=== PATIENT | female | born 1970 | race American Indian/Alaskan Native ===

== ENCOUNTER 2019-11-04 15:19 | Emergency (ER) | payer BC ==
[2019-11-04] MEDS ORDERED: ASPIRIN 325 MG TAB PO ONE (15:27)
--- NOTE | 2019-11-04 15:55 | XRay Report ---
CHEST 2 VIEWS INDICATION / CLINICAL INFORMATION: Chest Pain; pt states she felt anxious and couldn't take a deep breath today. COMPARISON: None available. FINDINGS: SUPPORT DEVICES: None. HEART / MEDIASTINUM: No significant abnormality. LUNGS / PLEURA: No significant pulmonary or pleural abnormality. No pneumothorax. ADDITIONAL FINDINGS: No significant additional findings. IMPRESSION: 1. No acute abnormality of the chest. Signer Name: Jake Bhatt MD Signed: 11/04/2019 3:51 PM Workstation Name: [id number]
--- NOTE | 2019-11-04 16:57 | Emergency Department Report ---
ED General Adult HPI - General Chief complaint: Chest Pain Stated complaint: CP Time Seen by Provider: 11/04/19 16:22 Source: patient Mode of arrival: Wheelchair Limitations: No Limitations - History of Present Illness Initial comments: Patient is a 49-year-old female presents emergency room with complaints of a sudden episode of palpitations, shortness of breath, chest tightening, tingling sensation that occurred just prior to arrival. She denies any cough, fever, shortness of breath, leg swelling. She states that she took Mucinex approximately an hour ago for allergy symptoms such as itchy watery eyes. She states that she has had increased stress and states that her boss called her today and said that she would have to come into the office next week and she is concerned due to the pandemic that is occurring. She denies any recent travel, recent surgery, sick contact, hormone use. She is a non-smoker and nondrinker. She has a past medical history of anemia. She denies any allergies to medications. - Related Data Allergies Allergy/AdvReac Type Severity Reaction Status Date / Time No Known Allergies Allergy Verified 11/04/19 15:21 ED Review of Systems ROS: Stated complaint: CP Other details as noted in HPI Comment: All other systems reviewed and negative ED Past Medical Hx - Past Medical History Previous Medical History?: No - Surgical History Past Surgical History?: No - Social History Smoking Status: Never Smoker Substance Use Type: None ED Physical Exam - General Limitations: No Limitations General appearance: alert - Head Head exam: Present: atraumatic, normocephalic - Eye Eye exam: Present: normal appearance - ENT ENT exam: Present: mucous membranes moist - Respiratory Respiratory exam: Present: normal lung sounds bilaterally. Absent: respiratory distress, wheezes, rales, rhonchi, stridor, chest wall tenderness, accessory muscle use, decreased breath sounds, prolonged expiratory - Cardiovascular Cardiovascular Exam: Present: normal rhythm, tachycardia, normal heart sounds. Absent: systolic murmur, diastolic murmur, rubs, gallop - Neurological Exam Neurological exam: Present: alert, oriented X3 - Psychiatric Psychiatric exam: Present: anxious - Skin Skin exam: Present: warm, dry, intact ED Course Vital Signs 11/04/19 11/04/19 15:22 19:35 Temperature 98.6 F 98.2 F Pulse Rate 113 H 62 Respiratory 16 18 Rate Blood Pressure 179/101 Blood Pressure 145/88 [Left] O2 Sat by Pulse 96 100 Oximetry ED Medical Decision Making - Lab Data Result diagrams: 11/04/19 16:33 11/04/19 16:33 Lab Results 11/04/19 11/04/19 11/04/19 Range/Units 16:33 16:33 17:01 WBC 6.8 (4.5-11.0) K/mm3 RBC 3.89 (3.65-5.03) M/mm3 Hgb 11.4 (10.1-14.3) gm/dl Hct 34.4 (30.3-42.9) % MCV 88 (79-97) fl MCH 29 (28-32) pg MCHC 33 (30-34) % RDW 14.1 (13.2-15.2) % Plt Count 314 (140-440) K/mm3 Lymph % (Auto) 20.3 (13.4-35.0) % Upson % (Auto) 5.7 (0.0-7.3) % Eos % (Auto) 3.4 (0.0-4.3) % Baso % (Auto) 0.6 (0.0-1.8) % Lymph # 1.4 (1.2-5.4) K/mm3 Upson # 0.4 (0.0-0.8) K/mm3 Eos # 0.2 (0.0-0.4) K/mm3 Baso # 0.0 (0.0-0.1) K/mm3 Seg Neutrophils % 70.0 (40.0-70.0) % Seg Neutrophils # 4.8 (1.8-7.7) K/mm3 Sodium 137 (137-145) mmol/L Potassium 3.4 L (3.6-5.0) mmol/L Chloride 101.5 (98-107) mmol/L Carbon Dioxide 25 (22-30) mmol/L Anion Gap 14 mmol/L BUN 8 (7-17) mg/dL Creatinine 0.6 L (0.7-1.2) mg/dL Estimated GFR > 60 ml/min BUN/Creatinine Ratio 13 % Glucose 103 H (65-100) mg/dL Calcium 9.1 (8.4-10.2) mg/dL Magnesium 2.30 (1.7-2.3) mg/dL Total Bilirubin 0.20 (0.1-1.2) mg/dL Direct Bilirubin < 0.2 (0-0.2) mg/dL Indirect Bilirubin 0.0 mg/dL AST 18 (5-40) units/L ALT 10 (7-56) units/L Alkaline Phosphatase 76 (35-129) units/L Total Creatine Kinase 151 H (30-135) units/L Troponin T < 0.010 (0.00-0.029) ng/mL Total Protein 7.6 (6.3-8.2) g/dL Albumin 4.2 (3.9-5) g/dL Albumin/Globulin Ratio 1.2 % TSH (0.270-4.200) mlU/mL HCG, Qual (Negative) 11/04/19 11/04/19 11/04/19 Range/Units 17:01 17:01 18:41 WBC (4.5-11.0) K/mm3 RBC (3.65-5.03) M/mm3 Hgb (10.1-14.3) gm/dl Hct (30.3-42.9) % MCV (79-97) fl MCH (28-32) pg MCHC (30-34) % RDW (13.2-15.2) % Plt Count (140-440) K/mm3 Lymph % (Auto) (13.4-35.0) % Upson % (Auto) (0.0-7.3) % Eos % (Auto) (0.0-4.3) % Baso % (Auto) (0.0-1.8) % Lymph # (1.2-5.4) K/mm3 Upson # (0.0-0.8) K/mm3 Eos # (0.0-0.4) K/mm3 Baso # (0.0-0.1) K/mm3 Seg Neutrophils % (40.0-70.0) % Seg Neutrophils # (1.8-7.7) K/mm3 Sodium (137-145) mmol/L Potassium (3.6-5.0) mmol/L Chloride (98-107) mmol/L Carbon Dioxide (22-30) mmol/L Anion Gap mmol/L BUN (7-17) mg/dL Creatinine (0.7-1.2) mg/dL Estimated GFR ml/min BUN/Creatinine Ratio % Glucose (65-100) mg/dL Calcium (8.4-10.2) mg/dL Magnesium (1.7-2.3) mg/dL Total Bilirubin (0.1-1.2) mg/dL Direct Bilirubin (0-0.2) mg/dL Indirect Bilirubin mg/dL AST (5-40) units/L ALT (7-56) units/L Alkaline Phosphatase (35-129) units/L Total Creatine Kinase (30-135) units/L Troponin T < 0.010 (0.00-0.029) ng/mL Total Protein (6.3-8.2) g/dL Albumin (3.9-5) g/dL Albumin/Globulin Ratio % TSH 0.775 (0.270-4.200) mlU/mL HCG, Qual Negative (Negative) - EKG Data EKG shows normal: sinus rhythm, axis, intervals, QRS complexes, ST-T waves Rate: tachycardia - EKG Data 11/04/19 21:29 no STEMI - Radiology Data Radiology results: report reviewed CHEST 2 VIEWS INDICATION / CLINICAL INFORMATION: Chest Pain; pt states she felt anxious and couldn't take a deep breath today. COMPARISON: None available. FINDINGS: SUPPORT DEVICES: None. HEART / MEDIASTINUM: No significant abnormality. LUNGS / PLEURA: No significant pulmonary or pleural abnormality. No pneumothorax. ADDITIONAL FINDINGS: No significant additional findings. IMPRESSION: 1. No acute abnormality of the chest. Signer Name: Jake Bhatt MD Signed: 11/04/2019 3:51 PM Workstation Name: [id number] Transcribed By: CORNEL Dictated By: Jake Bhatt MD Electronically Authenticated By: Jake Bhatt MD Signed Date/Time: 11/04/191550 DD/ 50 TD/TT: - Medical Decision Making Patient is a 49-year-old female presents emergency room with complaints of a sudden episode of palpitations, shortness of breath, chest tightening, tingling sensation that occurred just prior to arrival. She denies any cough, fever, shortness of breath, leg swelling. She states that she took Mucinex approximately an hour ago for allergy symptoms such as itchy watery eyes. She states that she has had increased stress and states that her boss called her today and said that she would have to come into the office next week and she is concerned due to the pandemic that is occurring. She denies any recent travel, recent surgery, sick contact, hormone use. She is a non-smoker and nondrinker. She has a past medical history of anemia. She denies any allergies to medications. Initial vitals with elevated heart rate and blood pressure, patient appears anxious, on repeat vitals are normal. Labs are stable. Troponin is negative x2. EKG with sinus tach, otherwise normal, no STEMI. Very mild decrease in potassium at 3.4, patient can replete orally by increasing her potassium intake. Chest x-ray with no acute abnormality. Wells score for PE is 1.5, PE is very unlikely. advised pt please increase your water intake. Avoid any stimulants such as caffeine. Follow-up with a primary care doctor. Follow- up with a public health social worker. Return to the emergency room for any new or worsening symptoms. Critical care attestation.: If time is entered above; I have spent that time in minutes in the direct care of this critically ill patient, excluding procedure time. ED Disposition Clinical Impression: Palpitations, Tingling, SOB (shortness of breath) Chest pain Qualifiers: Chest pain type: unspecified Qualified Code(s): R07.9 - Chest pain, unspecified Disposition: DC-01 TO HOME OR SELFCARE Is pt being admited?: No Does the pt Need Aspirin: No Condition: Stable Instructions: Chest Pain (ED), Anxiety (ED) Additional Instructions: Please increase your water intake. Avoid any stimulants such as caffeine. Follow-up with a primary care doctor. Follow-up with a public health social worker. Return to the emergency room for any new or worsening symptoms. Referrals: ARETHA LEONARD MD [Primary Care Provider] - 2-3 Days LACEY GAVIRIA MD [Staff Physician] - 2-3 Days Time of Disposition: 19:14 Print Language: [place]
[2019-11-04 17:13] LABS: Basophils % (Auto) 0.6 % (0.0-1.8); Eosinophils # (Auto) 0.2 K/mm3 (0.0-0.4); Eosinophils % (Auto) 3.4 % (0.0-4.3); Hematocrit 34.4 % (30.3-42.9); Hemoglobin 11.4 gm/dl (10.1-14.3); Lymphocytes # (Auto) 1.4 K/mm3 (1.2-5.4); Lymphocytes % (Auto) 20.3 % (13.4-35.0); Mean Corpuscular HGB Conc 33 % (30-34); Mean Corpuscular Volume 88 fl (79-97); Monocytes # (Auto) 0.4 K/mm3 (0.0-0.8); Monocytes % (Auto) 5.7 % (0.0-7.3); Platelet Count 314 K/mm3 (140-440); Red Blood Count 3.89 M/mm3 (3.65-5.03); Red Cell Distribution Width 14.1 % (13.2-15.2)
[2019-11-04 17:45] LABS: BUN/Creatinine Ratio 13; Blood Urea Nitrogen 8 mg/dL (7-17); Calcium 9.1 mg/dL (8.4-10.2); Hemolysis Index 6
[2019-11-04 17:47] LABS: Alanine Aminotransferase 10 units/L (7-56); Albumin 4.2 g/dL (3.9-5)
[2019-11-04 17:56] LABS: Bilirubin,Direct < 0.2 mg/dL (0-0.2)
[2019-11-04 19:54] VITALS: BP 145/88
== END 2019-11-04 19:35 | disposition home or self-care (01) ==
LOC: ED 15:19
DX: R00.2 Palpitations (principal); R20.2 Paresthesia of skin; R06.02 Shortness of breath; R07.89 Other chest pain
CPT/HCPCS: 36415; 71046; 80048; 80076; 82550; 83735; 84443; 84484; 84703; 85025; 93005; 93010